=== PATIENT | female | born 1955 | race Caucasian/White ===

== ENCOUNTER → 2017-10-13 | Outpatient (CLI) | payer BC ==
--- NOTE | 2017-10-13 16:09 | RADIOLOGY REPORT PS360 ---
UGI SERIES W/ AIR HISTORY: ESOPHAGEAL DYSPHAGIA ORDERING PHYSICIAN: Demian Martinez MD PATIENT AGE: 61 years COMPARISON: None FINDINGS: There is mild spasm of the distal esophagus. There is a small sliding hiatal hernia. No mass lesion or obstructing lesion of the esophagus. The stomach and Duodenum have an unremarkable appearance. There is no evidence of hiatal hernia. No ulcer or mass evident. No mucosal abnormalities apparent. There is normal peristalsis. The duodenal C-loop is nondisplaced. FLUOROSCOPY TIME : 2 minutes and 12 seconds. IMPRESSION: 1. Mild esophageal spasm with small sliding hiatal hernia. 2. Otherwise negative upper GI
--- NOTE | 2017-10-16 08:55 | RADIOLOGY REPORT PS360 ---
DIG MAMM-SCREEN SHE W/CAD CAD Screening COMPARISON: Digital mammograms 10/09/2015 and 09/07/2014 INDICATION: There is no personal or family history of breast cancer TECHNIQUE: Standard CC and MLO images were obtained. R2 CAD reviewed. FINDINGS: Scattered fibroglandular densities are seen in the central portions of both breasts. There is no suspicious lesion and no suspicious microcalcifications. IMPRESSION: Fibrofatty parenchyma with no suspicious lesion seen recommend yearly follow-up BI-RADS CATEGORY: 1_Negative RECOMMENDED FOLLOWUP: 12M 12 MONTH FOLLOW-UP (A letter has been sent to the patient regarding results of the study.)
== END ==
LOC: RAD 08:47
DX: R13.10 Dysphagia, unspecified (principal); Z12.31 Encounter for screening mammogram for malignant neoplasm of breast
CPT/HCPCS: G0202